=== PATIENT | male | born 1960 | race Hispanic/Latino ===

== ENCOUNTER → 2020-03-12 | Outpatient (CLI) | payer OTHER ==
[2020-03-12 16:32] LABS: ALBUMIN 4.3 g/dL (3.5-5.0); BILIRUBIN,TOTAL 0.8 mg/dL (0.2-1.0); CREATININE 1.4 mg/dL (0.5-1.5); POTASSIUM 3.9 mmol/L (3.5-5.1); TOTAL PROTEIN, SERUM 7.8 g/dL (6.0-8.3)
== END | disposition home or self-care (01) ==
LOC: LAB 15:40
PROVIDERS: ATTEND Internal Medicine Gastroenterology
DX: C18.6 Malignant neoplasm of descending colon (principal)
CPT/HCPCS: 36415; 80053; 82378

== ENCOUNTER → 2020-03-26 | Outpatient (CLI) | payer OTHER ==
[~2020-03-26] MED LIST: IOHEXOL 350 MG/ML 100ML INFUS..BTL IV ONE
== END | disposition home or self-care (01) ==
LOC: RAH 08:56
PROVIDERS: ATTEND Internal Medicine Gastroenterology
DX: C18.6 Malignant neoplasm of descending colon (principal); N20.0 Calculus of kidney; J98.11 Atelectasis
CPT/HCPCS: 71270; 74178; Q9967

== ENCOUNTER 2021-02-27 07:58 | Day surgery (SDC) | payer OTHER ==
[2021-02-24 12:25] VITALS: BP_SYST 150; BP_SYST 193; BP_DIAS 104; BP_DIAS 97
[~2021-02-27] VITALS: Ht 188 cm; Wt 108.7 kg
[2021-02-27] VITALS (12 sets, daily range): BP systolic 130–160; BP diastolic 85–92
[2021-02-27] MEDS ORDERED: LACTATED RINGERS 1000ML 1,000 ML IV ONE (08:22)
[2021-02-27] MEDS ORDERED: ALPR0.5T PO (08:43)
[2021-02-27] MEDS ORDERED: LISI20TA24 PO (08:43)
[2021-02-27] MEDS ORDERED: ATOR20TA65 PO (08:43)
[2021-02-27] MEDS: CEFTRIAXONE 1G VIAL IVP ONE ×2 (08:43→12:00)
[2021-02-27] MEDS ORDERED: AMIO200T6 PO (08:43)
[2021-02-27] MEDS ORDERED: AMOX1TAB16 PO (08:43)
[2021-02-27] MEDS ORDERED: PANT40TA54 PO (08:43)
[2021-02-27] MEDS ORDERED: LIDOCAINE HCL-MPF 1% 5ML AMP IJ ONE (11:46)
[2021-02-27] MEDS ORDERED: ROCURONIUM 10MG/1ML SYR 10 MG/ML ML ONE (11:46)
[2021-02-27] MEDS ORDERED: FENTANYL CITRATE PF 50 MCG/1 ML 2ML VIAL ONE (11:46)
[2021-02-27] MEDS ORDERED: PROPOFOL 10 MG/ML 20ML VIAL IV ONE (11:46)
[2021-02-27] MEDS ORDERED: MIDAZOLAM HCL 1 MG/ML 2ML VIAL ONE ×2 (11:46→12:04)
[2021-02-27] MEDS ORDERED: SUCCINYLCHOLINE CHLORIDE 20 MG/ML 10 ML VIAL ONE (11:46)
[2021-02-27] MEDS ORDERED: LIDOCAINE HCL 2% PF 20 ML JEL DISP.SYRIN MM ONE (12:05)
== END 2021-02-27 14:00 | disposition home or self-care (01) ==
LOC: DAH 07:58
PROVIDERS: ATTEND Urology
DX: R97.20 Elevated prostate specific antigen [PSA] (principal); Z20.822 Contact with and (suspected) exposure to COVID-19; F41.9 Anxiety disorder, unspecified; I10 Essential (primary) hypertension; Z79.899 Other long term (current) drug therapy; Z91.041 Radiographic dye allergy status; Z85.038 Personal history of other malignant neoplasm of large intestine; Z88.3 Allergy status to other anti-infective agents
CPT/HCPCS: 55700; 76872; 87635; 88305; 88312; 88342; A4215 ×2; A4221; A4222; A4223; A4600; A4649; A4663; A6260; C9803; J0330; J0696; J2250 ×2; J2704; J3010; J3490; J7120 ×2

== ENCOUNTER 2021-02-28 11:08 | Emergency (ER) | payer OTHER ==
[~2021-02-28] VITALS: Ht 188 cm; Wt 108.4 kg
[~2021-02-28 11:08] MED LIST changes: +ALPR0.5T PO; +AMIO200T6 PO; +AMOX1TAB16 PO; +ATOR20TA65 PO; -IOHEXOL 350 MG/ML 100ML INFUS..BTL IV ONE; +LISI20TA24 PO; +PANT40TA54 PO
[2021-02-28 12:54] VITALS: BP 149/99
[2021-02-28 14:09] VITALS: BP 145/95
== END 2021-02-28 14:08 | disposition home or self-care (01) ==
LOC: EDH 11:08
DX: N40.1 Benign prostatic hyperplasia with lower urinary tract symptoms (principal); R33.8 Other retention of urine; I10 Essential (primary) hypertension; Z79.899 Other long term (current) drug therapy; Z88.8 Allergy status to other drugs, medicaments and biological substances; Z98.890 Other specified postprocedural states
CPT/HCPCS: 51702

== ENCOUNTER 2021-03-03 19:52 | Emergency (ER) | payer OTHER ==
[~2021-03-03] VITALS: Ht 188 cm; Wt 108.4 kg
[2021-03-03 20:15] VITALS: BP 155/109
[2021-03-03 20:18] VITALS: BP 155/109
[2021-03-03 20:59] LABS: APPEARANCE,URINE Cloudy (CLEAR); BILIRUBIN,URINE Negative (NEGATIVE); COLOR,URINE Yellow (YELLOW); GLUCOSE, URINE (UA) Negative (NEGATIVE); KETONES,URINE Negative (NEGATIVE); LEUKOCYTE ESTERASE ,URINE Moderate (NEGATIVE); NITRATE,URINE Negative (NEGATIVE); OCCULT BLOOD,URINE Large (NEGATIVE); PH,URINE 5.5 (5.0-8.0); PROTEIN,URINE POS 1+ mg/dL (NEGATIVE); UROBILINOGEN,URINE 0.2 mg/dL (0.2-1.0)
[2021-03-03 21:14] LABS: BACTERIA,URINE Few /HPF (None Seen); MUCUS,URINE Few LPF (None Seen); SQUAMOUS EPITHELIAL CELL,UR Rare /HPF (0-2); YEAST,URINE BUDDING Moderate /HPF (None Seen)
== END 2021-03-03 23:09 | disposition home or self-care (01) ==
LOC: EDH 19:52
DX: R33.9 Retention of urine, unspecified (principal); I10 Essential (primary) hypertension; Z79.899 Other long term (current) drug therapy; Z85.038 Personal history of other malignant neoplasm of large intestine; Z88.8 Allergy status to other drugs, medicaments and biological substances
CPT/HCPCS: 51702; 81001; 87088

== ENCOUNTER 2022-11-14 14:39 | Emergency (ER) | payer OTHER ==
[~2022-11-14] VITALS: Ht 188 cm; Wt 118.8 kg
[~2022-11-14 14:39] MED LIST changes: -AMIO200T6 PO; +AMIO200T68 PO
[2022-11-14 15:20] LABS: APPEARANCE,URINE CLEAR (CLEAR); BILIRUBIN,URINE NEGATIVE (NEGATIVE); COLOR,URINE LIGHT-YELLOW (YELLOW); GLUCOSE, URINE (UA) NEGATIVE (NEGATIVE); KETONES,URINE NEGATIVE (NEGATIVE); LEUKOCYTE ESTERASE ,URINE 250 Leu/uL (NEGATIVE); NITRATE,URINE NEGATIVE (NEGATIVE); OCCULT BLOOD,URINE LARGE (NEGATIVE); PH,URINE 5.5 (5.0-8.0); PROTEIN,URINE 10 mg/dL (NEGATIVE); UROBILINOGEN,URINE 0.2 mg/dL (0.2-1.0)
[2022-11-14 15:28] LABS: BACTERIA,URINE RARE /HPF (None Seen); MUCUS,URINE RARE LPF (None Seen); RBC,URINE TNTC /HPF (0-1); WBC,URINE 51-100 /HPF (0-1)
[2022-11-14] MEDS ORDERED: MORPHINE 2 MG SYG IVP ONE (16:00)
[2022-11-14] MEDS ORDERED: 0.9% NACL 500ML IV.SOLN 500 ML IV ONE (16:00)
[2022-11-14] MEDS ORDERED: KETOROLAC 15MG/ML VIAL (15MG/ML) IV ONE (16:00)
[2022-11-14] MEDS ORDERED: ONDANSETRON 4MG INJ IVP ONE (16:00)
[2022-11-14 16:38] LABS: BASOPHILS % (AUTO) 0.3 % (0.0-5.0); EOSINOPHILS % (AUTO) 0.8 % (0.0-8.0); HEMATOCRIT 42.6 % (42-54); LYMPHOCYTES % (AUTO) 11.9 % (21.0-51.0); MEAN CORPUSCULAR HEMOGLOBIN 28.9 pg (27.0-33.0); MEAN CORPUSCULAR HGB CONC 31.9 g/dL (32.0-36.0); MEAN CORPUSCULAR VOLUME 90.6 fL (79-99); MONOCYTES % (AUTO) 9.3 % (3.0-13.0); NEUTROPHILS % (AUTO) 77.4 % (40.0-77.0); PLATELET COUNT (AUTO) 160 K/uL (130-400); RED CELL DISTRIBUTION WIDTH 14.3 % (11.0-15.5)
[2022-11-14 16:46] LABS: CREATININE 2.7 mg/dL (0.5-1.5); POTASSIUM 4.2 mmol/L (3.5-5.1)
[2022-11-14 16:51] LABS: ALBUMIN 4.1 g/dL (3.5-5.0); TOTAL PROTEIN, SERUM 7.6 g/dL (6.0-8.3)
[2022-11-14] MEDS ORDERED: CEPH500B PO ×2 (17:11→17:22)
[2022-11-14] MEDS ORDERED: IBUP-2070 PO (17:22)
[2022-11-14] MEDS ORDERED: CEFTRIAXONE 1G VIAL IVPB ONE (17:30)
[2022-11-14 18:07] VITALS: BP 166/76
== END 2022-11-14 18:25 | disposition home or self-care (01) ==
LOC: EDH 14:39
DX: N39.0 Urinary tract infection, site not specified (principal); J44.9 Chronic obstructive pulmonary disease, unspecified; I10 Essential (primary) hypertension; F41.9 Anxiety disorder, unspecified; Z79.899 Other long term (current) drug therapy; Z85.46 Personal history of malignant neoplasm of prostate; Z88.8 Allergy status to other drugs, medicaments and biological substances; Z87.442 Personal history of urinary calculi
CPT/HCPCS: 99285; 74176; 96374; 96375 ×2; 80053; 85025; 87088; 81001; 36415; J2270; J0696; J2405; J1885

== ENCOUNTER 2022-11-18 00:21 | Observation (INO) | payer OTHER ==
[~2022-11-18] VITALS: Ht 185.4 cm; Wt 121.1 kg
[2022-11-18] VITALS (20 sets, daily range): BP systolic 128–171; BP diastolic 62–88
[~2022-11-18 00:21] MED LIST changes: +CEPH500B PO; +IBUP-2070 PO
[2022-11-18] MEDS ORDERED: LACTATED RINGERS 1000ML 1,000 ML IV ONE (01:30)
[2022-11-18] MEDS ORDERED: METOCLOPRAMIDE 10 MG/2 ML VIAL IVP ONE (01:30)
[2022-11-18] MEDS ORDERED: FAMOTIDINE 20MG VIAL IV ONE (01:30)
[2022-11-18] MEDS ORDERED: MORPHINE 4 MG SYG IVP ONE (01:30)
[2022-11-18 01:49] LABS: BASOPHILS % (AUTO) 0.5 % (0.0-5.0); EOSINOPHILS % (AUTO) 1.6 % (0.0-8.0); HEMATOCRIT 41.9 % (42-54); LYMPHOCYTES % (AUTO) 14.9 % (21.0-51.0); MEAN CORPUSCULAR HEMOGLOBIN 29.2 pg (27.0-33.0); MEAN CORPUSCULAR VOLUME 91.3 fL (79-99); MONOCYTES % (AUTO) 9.9 % (3.0-13.0); NEUTROPHILS % (AUTO) 72.9 % (40.0-77.0); PLATELET COUNT (AUTO) 191 K/uL (130-400); RED BLOOD CELL COUNT(AUTO) 4.59 MIL/uL (4.50-6.20); RED CELL DISTRIBUTION WIDTH 13.7 % (11.0-15.5); WHITE BLOOD COUNT (AUTO) 8.6 K/uL (4.8-10.8)
[2022-11-18 01:52] LABS: CREATININE 1.6 mg/dL (0.5-1.5); POTASSIUM 4.3 mmol/L (3.5-5.1)
[2022-11-18 01:57] LABS: ALBUMIN 4.1 g/dL (3.5-5.0); TOTAL PROTEIN, SERUM 7.7 g/dL (6.0-8.3)
[2022-11-18] MEDS ORDERED: TAMSULOSIN HCL 0.4 MG CAP.ER.24H PO ONE (02:30)
[2022-11-18] MEDS ORDERED: MAG/ALUM/SIMETH 30 ML UDCUP PO PRN (02:30)
[2022-11-18] MEDS ORDERED: GUAIFENESIN-DM 200/20 MG 10 ML PO PRN (02:30)
[2022-11-18] MEDS ORDERED: GLUCAGON 1MG KIT 1 MG ML IM PRN (02:30)
[2022-11-18] MEDS ORDERED: ACETAMINOPHEN 325 MG TAB PO PRN ×2 (02:30)
[2022-11-18] MEDS ORDERED: DEXTROSE 50%-WATER 50 ML DISP.SYRIN IV PRN (02:30)
[2022-11-18] MEDS ORDERED: NITROGLYCERIN 0.4 MG SL TAB SL PRN (02:30)
[2022-11-18] MEDS ORDERED: MORPHINE 4 MG SYG IVP PRN (02:30)
[2022-11-18] MEDS ORDERED: LACTULOSE 20 GM/30 ML UDCUP PO PRN (02:30)
[2022-11-18] MEDS: LACTATED RINGERS 1000ML 1,000 ML IV SCH ×2 (03:30→11:21)
[2022-11-18 03:36] LABS: APPEARANCE,URINE CLOUDY (CLEAR); BILIRUBIN,URINE NEGATIVE (NEGATIVE); COLOR,URINE LIGHT-YELLOW (YELLOW); GLUCOSE, URINE (UA) NEGATIVE (NEGATIVE); KETONES,URINE NEGATIVE (NEGATIVE); LEUKOCYTE ESTERASE ,URINE 500 Leu/uL (NEGATIVE); NITRATE,URINE NEGATIVE (NEGATIVE); OCCULT BLOOD,URINE LARGE (NEGATIVE); PH,URINE 5.5 (5.0-8.0); PROTEIN,URINE 20 mg/dL (NEGATIVE); UROBILINOGEN,URINE 0.2 mg/dL (0.2-1.0)
[2022-11-18 03:45] LABS: MUCUS,URINE RARE LPF (None Seen); RBC,URINE TNTC /HPF (0-1); WBC,URINE 51-100 /HPF (0-1)
[2022-11-18] MEDS: ONDANSETRON 4MG INJ IV PRN ×2 (03:53→15:26)
[2022-11-18] MEDS: HYDROMORPHONE 1 MG INJ IVP PRN ×3 (04:14→15:26)
[2022-11-18 04:47] LABS: HEMOGLOBIN A1C 6.1 % (4.0-6.0)
[2022-11-18] MEDS: INSULIN HUMULIN R 100 UNIT/ML 3ML SQ SCH ×3 (07:30→17:00)
[2022-11-18] MEDS: TAMSULOSIN HCL 0.4 MG CAP.ER.24H PO SCH (09:00)
[2022-11-18] MEDS: CEFTRIAXONE 2GM VIAL IVPB SCH (09:58)
[2022-11-18] MEDS ORDERED: MIDAZOLAM HCL 1 MG/ML 2ML VIAL ONE (18:34)
[2022-11-18] MEDS ORDERED: LIDOCAINE PF 100MG/5ML (2%) SYRINGE 5ML ONE (18:34)
[2022-11-18] MEDS ORDERED: PROPOFOL 10 MG/ML 20ML VIAL IV ONE (18:35)
[2022-11-18] MEDS ORDERED: FENTANYL CITRATE PF 50 MCG/1 ML 2ML VIAL ONE (18:35)
[2022-11-18] MEDS ORDERED: KETAMINE 50MG/ML SYRINGE 50 MG/ML DISP.SYRIN ONE (18:38)
[2022-11-18] MEDS ORDERED: IOHEXOL-350 50ML VIAL IV ONE (18:41)
[2022-11-18] MEDS ORDERED: EPHEDRINE SULFATE 50 MG/ML AMPULE ONE (19:13)
[2022-11-18] MEDS ORDERED: 0.9%NACL 10ML VIAL ONE (19:30)
[2022-11-18] MEDS ORDERED: PHENYLEPHRINE HCL 10 MG/ML 1ML VIAL IV ONE (19:31)
[2022-11-18] MEDS ORDERED: ONDANSETRON 4MG INJ ONE (19:51)
[2022-11-19 00:55] VITALS: BP 135/77
[2022-11-19 01:55] VITALS: BP 139/79
[2022-11-19 02:55] VITALS: BP 147/74
[2022-11-19 04:57] VITALS: BP 147/73
[2022-11-19] MEDS ORDERED: PHENAZOPYRIDINE HCL 200 MG TABLET PO SCH (05:00)
[2022-11-19] MEDS ORDERED: OXYBUTYNIN CHLORIDE 5 MG TABLET PO SCH (05:00)
[2022-11-19 05:06] LABS: BASOPHILS % (AUTO) 0.2 % (0.0-5.0); EOSINOPHILS % (AUTO) 0.7 % (0.0-8.0); HEMATOCRIT 34.4 % (42-54); LYMPHOCYTES % (AUTO) 15.3 % (21.0-51.0); MEAN CORPUSCULAR HEMOGLOBIN 28.9 pg (27.0-33.0); MEAN CORPUSCULAR HGB CONC 31.7 g/dL (32.0-36.0); MEAN CORPUSCULAR VOLUME 91.2 fL (79-99); MONOCYTES % (AUTO) 8.6 % (3.0-13.0); PLATELET COUNT (AUTO) 125 K/uL (130-400); RED BLOOD CELL COUNT(AUTO) 3.77 MIL/uL (4.50-6.20); RED CELL DISTRIBUTION WIDTH 13.9 % (11.0-15.5)
[2022-11-19 05:45] LABS: ALBUMIN 2.9 g/dL (3.5-5.0); CREATININE 1.4 mg/dL (0.5-1.5); MAGNESIUM 1.6 mg/dL (1.80-2.40); POTASSIUM 3.5 mmol/L (3.5-5.1); TOTAL PROTEIN, SERUM 5.9 g/dL (6.0-8.3)
[2022-11-19] MEDS: INSULIN HUMULIN R 100 UNIT/ML 3ML SQ SCH ×2 (07:30→11:30)
[2022-11-19 08:00] VITALS: BP 131/73
[2022-11-19] MEDS ORDERED: MAGNESIUM 2GM PREMIX 50ML 50 ML IV SCH (09:00)
[2022-11-19] MEDS ORDERED: POTASSIUM CHLORIDE 20 MEQ/100 ML BAG IV SCH (09:00)
[2022-11-19] MEDS: CEFTRIAXONE 2GM VIAL IVPB SCH (09:44)
[2022-11-19] MEDS: TAMSULOSIN HCL 0.4 MG CAP.ER.24H PO SCH (09:45)
[2022-11-19] MEDS ORDERED: KCL 20 MEQ ERTAB PO ONE (10:30)
[2022-11-19 12:00] VITALS: BP 143/79
[2022-11-19] MEDS ORDERED: PHEN-948 PO (15:03)
[2022-11-19] MEDS ORDERED: TAMS-1 PO (15:03)
[2022-11-19] MEDS ORDERED: AMOX-426 PO (15:03)
== END 2022-11-19 15:50 | disposition home or self-care (01) ==
LOC: EDH 00:21 → EDHIP 02:23 → 4DH 20:41
PROVIDERS: ADMIT Internal Medicine Critical Care Medicine; ATTEND Internal Medicine Critical Care Medicine
DX: N20.0 Calculus of kidney (principal); Z20.822 Contact with and (suspected) exposure to COVID-19; I12.9 Hypertensive chronic kidney disease with stage 1 through stage 4 chronic kidney disease, or unspecified chronic kidney disease; N18.30 Chronic kidney disease, stage 3 unspecified; E11.22 Type 2 diabetes mellitus with diabetic chronic kidney disease; E11.65 Type 2 diabetes mellitus with hyperglycemia; F41.9 Anxiety disorder, unspecified; E66.01 Morbid (severe) obesity due to excess calories; C18.9 Malignant neoplasm of colon, unspecified; C61 Malignant neoplasm of prostate; E78.00 Pure hypercholesterolemia, unspecified; N17.9 Acute kidney failure, unspecified; Z85.038 Personal history of other malignant neoplasm of large intestine; Z85.46 Personal history of malignant neoplasm of prostate; Z87.442 Personal history of urinary calculi; Z90.49 Acquired absence of other specified parts of digestive tract; Z92.3 Personal history of irradiation; Z79.899 Other long term (current) drug therapy; Z98.890 Other specified postprocedural states; Z68.35 Body mass index [BMI] 35.0-35.9, adult
CPT/HCPCS: 52356; 96376; 96375; 99284; 83036; 80053 ×2; 85025 ×2; 82948 ×5; 82360; 81001; 36415 ×2; 87635; 74420; 96365; 96366; 96367; 83735; G0378 ×35; J7120 ×3; A4314; C1769 ×2; A4354; C1758; J3490 ×3; J3010; J1170 ×3; J0696 ×2; J2001; J2250; J2704; J2405 ×3; J2270 ×2; J2765; J2370; Q9967; A4358; C2617; A4600; J3475

== ENCOUNTER 2022-12-07 13:33 | Emergency (ER) | payer OTHER ==
[~2022-12-07] VITALS: Ht 188 cm; Wt 117.9 kg
[~2022-12-07 13:33] MED LIST changes: +AMOX-426 PO; -AMOX1TAB16 PO; -CEPH500B PO; +PHEN-948 PO; +TAMS-1 PO
[2022-12-07 14:47] LABS: APPEARANCE,URINE CLOUDY (CLEAR); BILIRUBIN,URINE NEGATIVE (NEGATIVE); COLOR,URINE LIGHT-YELLOW (YELLOW); GLUCOSE, URINE (UA) NEGATIVE (NEGATIVE); KETONES,URINE NEGATIVE (NEGATIVE); LEUKOCYTE ESTERASE ,URINE 500 Leu/uL (NEGATIVE); NITRATE,URINE NEGATIVE (NEGATIVE); OCCULT BLOOD,URINE MODERATE (NEGATIVE); PH,URINE 5.5 (5.0-8.0); PROTEIN,URINE 50 mg/dL (NEGATIVE); UROBILINOGEN,URINE 0.2 mg/dL (0.2-1.0)
[2022-12-07 14:52] LABS: BACTERIA,URINE MOD /HPF (None Seen); MUCUS,URINE FEW LPF (None Seen); RBC,URINE 26-50 /HPF (0-1); SQUAMOUS EPITHELIAL CELL,UR RARE /HPF (0-2); WBC,URINE >100 /HPF (0-1); YEAST,URINE BUDDING RARE /HPF (None Seen)
[2022-12-07 16:27] VITALS: BP 146/84
[2022-12-07] MEDS ORDERED: CEFTRIAXONE 1G VIAL IVPB ONE (16:30)
[2022-12-07 16:38] LABS: BASOPHILS % (AUTO) 0.5 % (0.0-5.0); EOSINOPHILS % (AUTO) 2.3 % (0.0-8.0); HEMATOCRIT 41.8 % (42-54); LYMPHOCYTES % (AUTO) 14.4 % (21.0-51.0); MEAN CORPUSCULAR HEMOGLOBIN 28.5 pg (27.0-33.0); MEAN CORPUSCULAR HGB CONC 31.6 g/dL (32.0-36.0); MEAN CORPUSCULAR VOLUME 90.3 fL (79-99); MONOCYTES % (AUTO) 6.3 % (3.0-13.0); PLATELET COUNT (AUTO) 276 K/uL (130-400); RED BLOOD CELL COUNT(AUTO) 4.63 MIL/uL (4.50-6.20); RED CELL DISTRIBUTION WIDTH 13.7 % (11.0-15.5); WHITE BLOOD COUNT (AUTO) 6.5 K/uL (4.8-10.8)
[2022-12-07 16:47] LABS: CREATININE 1.5 mg/dL (0.5-1.5); POTASSIUM 4.6 mmol/L (3.5-5.1)
[2022-12-07 16:51] LABS: ALBUMIN 3.3 g/dL (3.5-5.0); TOTAL PROTEIN, SERUM 7.5 g/dL (6.0-8.3)
[2022-12-07] MEDS ORDERED: PHEN-847 PO (17:36)
[2022-12-07] MEDS ORDERED: CEPH500B PO (17:36)
== END 2022-12-07 17:44 | disposition home or self-care (01) ==
LOC: EDH 13:33
DX: N39.0 Urinary tract infection, site not specified (principal); I10 Essential (primary) hypertension; E78.00 Pure hypercholesterolemia, unspecified; F41.9 Anxiety disorder, unspecified; Z79.899 Other long term (current) drug therapy; Z85.038 Personal history of other malignant neoplasm of large intestine; Z85.46 Personal history of malignant neoplasm of prostate; Z87.442 Personal history of urinary calculi; Z90.49 Acquired absence of other specified parts of digestive tract; Z98.890 Other specified postprocedural states; Z92.3 Personal history of irradiation; Z91.040 Latex allergy status
CPT/HCPCS: 99284; 96365; 80053; 85025; 87088; 81001; 36415; J0696